=== PATIENT | female | born 1960 | race Caucasian/White ===

== ENCOUNTER 2020-09-27 08:55 | Outpatient (CLI) | payer BC, SELFPAY | END 2020-09-27 08:56 | disposition home or self-care (01) | PROVIDERS: PCP Family Medicine; Visit Provider Specialist | DX: C44.629 Squamous cell carcinoma of skin of left upper limb, including shoulder (principal) | CPT/HCPCS: 88305 ==

== ENCOUNTER 2024-01-21 16:35 | Outpatient (CLI) | payer BC, SELFPAY | END 2024-01-21 16:36 | disposition home or self-care (01) | LOC: CHSLAB 16:36 | PROVIDERS: PCP Family Medicine; Visit Provider Specialist | DX: D22.4 Melanocytic nevi of scalp and neck (principal) | CPT/HCPCS: 88305 ==

== ENCOUNTER 2024-08-11 15:12 | Outpatient (CLI) | payer BC, SELFPAY | END 2024-08-11 15:13 | disposition home or self-care (01) | LOC: CHSLAB 15:17 | PROVIDERS: PCP Family Medicine; Visit Provider Specialist | DX: L82.0 Inflamed seborrheic keratosis (principal) | CPT/HCPCS: 88305 ==